=== PATIENT | male | born 1965 | race Caucasian/White ===

== ENCOUNTER 2020-06-03 15:17 | Emergency (ER) | payer BC ==
[~2020-06-03] VITALS: Ht 182.9 cm; Wt 89.8 kg
[2020-06-03 15:47] VITALS: BP 135/82; Ht 182.9 cm; Wt 89.8 kg
== END 2020-06-03 17:19 | disposition home or self-care (01) ==
LOC: ED 15:17
DX: M25.522 Pain in left elbow (principal)